=== PATIENT | female | born 1950 | race African-American/Black ===

== ENCOUNTER 2016-08-18 13:17 | Day surgery (SDC) | payer MEDICARE ==
[2016-08-18] VITALS (9 sets, daily range): BP systolic 91–118; BP diastolic 55–78; PULSE 73–92; TEMP 98.1–98.4
[~2016-08-18] VITALS: Ht 160 cm; Wt 86.4 kg
[2016-08-18] MEDS ORDERED: HCTZ 25MG TAB25 MG PO (14:29)
[2016-08-18] MEDS ORDERED: ZESTRIL 20MG TA20 MG PO (14:30)
== END 2016-08-18 21:50 | disposition home or self-care (01) ==
LOC: SDCO 13:17 → SURG 18:20 → SDCO 21:50
DX: K83.1 Obstruction of bile duct (principal); K83.8 Other specified diseases of biliary tract; K86.89 Other specified diseases of pancreas; I10 Essential (primary) hypertension; E78.00 Pure hypercholesterolemia, unspecified; R74.8 Abnormal levels of other serum enzymes; R93.5 Abnormal findings on diagnostic imaging of other abdominal regions, including retroperitoneum; R53.81 Other malaise
CPT/HCPCS: OP; C1769; C2625; J1610; J2704; J7120

== ENCOUNTER → 2016-11-21 | Outpatient (REF) ==
[~2016-11-21] MED LIST: HCTZ 25MG TAB25 MG PO; ZESTRIL 20MG TA20 MG PO
[2016-11-21 10:17] LABS: BASO # 0.1 (0.0-0.2); BASO % 0.4 % (0.0-2.0); EOS # 0.3 (0.0-0.7); EOS % 2.2 % (0-4.0); GRAN # 8.6 (1.4-6.5); GRAN % 66.4 % (42.2-75.2); LYMPH # 2.7 (1.2-3.4); LYMPH % 20.9 % (20.0-51.0); MEAN CELL VOLUME 91 fl (80.0-100.0); MEAN CORPUSCULAR HGB CONC 33 g/dl (33.0-37.0); MONO # 1.2 (0.1-0.6); MONO % 9.5 % (1.7-9.3); PLATELET COUNT 756 K/mm3 (130-400); RED BLOOD COUNT 3.91 M/mm3 (4.10-5.30); REDCELL DISTRIBUTION WIDTH-CV 12.6 % (11.5-14.5)
[2016-11-21 10:20] LABS: HEMATOCRIT 35.6 % (37.0-47.0); HEMOGLOBIN 11.6 g/dl (12.5-16.0); MEAN CORPUSCULAR HEMOGLOBIN 30 pg (27.0-31.0)
[2016-11-21 10:50] LABS: ADJUSTED CALCIUM 9.8 mg/dL (8.4-10.2); ALBUMIN 3.9 gm/dL (3.5-5.0); BILIRUBIN,TOTAL 0.8 mg/dL (0.0-1.0); CALCIUM 9.7 mg/dL (8.4-10.2); CREATININE, serum 0.75 mg/dL (0.52-1.25); POTASSIUM 4.7 mmol/L (3.4-5.0); TOTAL PROTEIN 7.4 gm/dL (6.4-8.2)
== END ==
LOC: ZCOL.LAB 10:04
PROVIDERS: Internal Medicine
DX: Z01.89 Encounter for other specified special examinations (principal)

== ENCOUNTER → 2016-11-21 | Outpatient (CLI) | payer MEDICARE | LOC: COL.RAD 12:18 | DX: K31.89 Other diseases of stomach and duodenum (principal) | CPT/HCPCS: Q9967 ==